=== PATIENT | female | born 1950 | race Caucasian/White ===

== ENCOUNTER 2019-06-23 14:03 | Outpatient (CLI) | payer MEDICARE, OTHER ==
[~2019-06-23] VITALS: Ht 167.6 cm; Wt 63.6 kg
[2019-06-23 14:26] VITALS: BP 139/69; Ht 167.6 cm; Wt 63.6 kg
--- NOTE | 2019-06-23 14:46 | NUR ---
DID WELL AFTER PROLIA INJECTION. MONITORED 15 MINUTES POST INJECTION. NO ACUTE CHANGES NOTED. DC'D HOME AMBULATORY. NO NEEDS ASSESSED.
== END 2019-06-23 14:46 | disposition home or self-care (01) ==
LOC: D.OPS 14:03
PROVIDERS: ATTEND Emergency Medicine
DX: M81.0 Age-related osteoporosis without current pathological fracture (principal)